=== PATIENT | female | born 1990 | race Caucasian/White ===

== ENCOUNTER 2017-02-07 19:53 | Emergency (ER) | payer OTHER ==
[2017-02-07 19:57] VITALS: BP 100/65; PULSE 73; TEMP 98.8; BMI 34.4
--- NOTE | 2017-02-07 20:11 | PDOC ---
History of Present Illness - History of Present Illness Initial Comments: 02/07/17 20:25 The patient is a 26 year old female, , with a significant past medical history of PCOS, who presents to the emergency department with a couple of weeks of intermittent nausea, fatigue, and lower abdominal pain. The patient states she took an at-home test at the onset of her symptoms 2 weeks ago which was negative, but denies taking another one since. She states that her current pain is just like what I experienced with my last . She reports having the Mirena in place since 2014, and is concerned she may be now. She states she does not have an Brand Lead at this time. She denies chest pain, shortness of breath, headache and dizziness. She denies fever, chills, nausea, vomit, diarrhea and constipation. She denies dysuria, frequency, urgency and hematuria. PAST MEDICAL HISTORY: no significant history PAST SURGICAL HISTORY: no significant history FAMILY HISTORY: no pertinent history SOCIAL HISTORY: Pt lives with family and is employed. MEDICATIONS: reviewed ALLERGIES: As per nursing notes ROS General: (+) fatigue. No fevers or chills, no weakness, no weight loss HEENT: No change in vision. No sore throat,. No ear pain CardioVascular: No chest pain or shortness of breath Respiratory:No cough, or wheezing. Gastrointestinal: (+) lower abdominal pain. Nausea. No vomiting, diarrhea or constipation, No rectal bleeding Genitourinary: No dysuria, hematuria, or frequency Musculoskeletal: No joint or muscle pain or swelling Neurologic: No headache, vertigo, dizziness or loss of consciousness Psychiatric: nor depression Skin: No rashes or easy bruising Endocrine: no increased thirst or abnormal weight change Allergic: no skin or latex allergy All other systems reviewed and normal Physical Exam GENERAL: The patient is awake, alert, and fully oriented, in no acute distress. HEAD: Normal with no signs of trauma. EYES: Pupils equal, round and reactive to light, extraocular movements intact, sclera anicteric, conjunctiva clear. ABDOMEN: nontender. Soft, nondistended, normal bowel sounds EXTREMITIES: Normal range of motion, no edema. NEUROLOGICAL: Normal speech, normal gait. PSYCH: Normal mood, normal affect. SKIN: Warm, Dry, normal turgor, no rashes or lesions noted. <Rose Diaz - Last Filed: 02/07/17 20:33> - General History Source: Patient Exam Limitations: No Limitations - History of Present Illness Initial Comments: 02/07/17 20:40 A portion of this note was documented by scribe services under my direction. I have reviewed the details of the note, within reason, and agree with the documentation. The case summary and management plan written by me. Assessment and plan: This is a 26-year-old female who comes in complaining of intermittent lower abdominal pain with some nausea and fatigue. Patient is concerned that she may be and has a Mirena IUD. Patient had a test done here in the emergency room which was negative Patient was not experiencing any pain or nausea at the time of my evaluation. She had a normal exam. There was no tenderness of her lower abdomen. Patient was reassured that she was not at this time. Patient was encouraged to follow-up with an OB or her primary care DrBreonna if symptoms persisted. Patient discharged home. <Ninoska Ralph I - Last Filed: 02/07/17 20:42> - General Chief Complaint: Pain Stated Complaint: ABD CRAMPING/NAUSEA Time Seen by Provider: 02/07/17 20:02 Past History <Rose Diaz - Last Filed: 02/07/17 20:33> - Past Medical History Asthma: No Cancer: No Cardiac Disorders: No COPD: No Diabetes: No Disorders: Yes (POLYCYSTIC OVARIAN SYNDROME) HTN: No Seizures: No Thyroid Disease: No - Suicide/Smoking/Psychosocial Hx Smoking History: Never smoked Have you smoked in the past 12 months: No Hx Alcohol Use: No Drug/Substance Use Hx: No Substance Use Type: None Hx Substance Use Treatment: No <Ninoska Ralph I - Last Filed: 02/07/17 20:42> - Past Medical History Allergies/Adverse Reactions: Allergies Allergy/AdvReac Type Severity Reaction Status Date / Time No Known Allergies Allergy Verified 03/04/14 12:32 Home Medications: Ambulatory Orders NK [No Known Home Medication] 02/07/17 *Physical Exam - Vital Signs Last Vital Signs Temp Pulse Resp BP Pulse Ox 98.8 F 73 16 100/65 8 L 02/07/17 19:55 02/07/17 19:55 02/07/17 19:55 02/07/17 19:55 02/07/17 19:55 <Rose Diaz - Last Filed: 02/07/17 20:33> - Vital Signs Last Vital Signs Temp Pulse Resp BP Pulse Ox 98.8 F 73 16 100/65 8 L 02/07/17 19:55 02/07/17 19:55 02/07/17 19:55 02/07/17 19:55 02/07/17 19:55 <Ninoska Ralph I - Last Filed: 02/07/17 20:42> ED Treatment Course - ADDITIONAL ORDERS Additional order review: Laboratory Results 02/07/17 20:00 Urine Color Yellow Urine Appearance Hazy Urine pH 7.0 D Ur Specific [place] 1.020 Urine Protein Negative Urine Glucose (UA) Negative Urine Ketones Trace Urine Blood Negative Urine Nitrite Negative Urine Bilirubin Negative Urine Urobilinogen 1.0 Ur Leukocyte Esterase Trace H Urine HCG, Qual Negative <Rose Diaz - Last Filed: 02/07/17 20:33> *DC/Admit/Observation/Transfer - Attestations Scribe Attestion: 02/07/17 20:25 Documentation prepared by Rose Diaz, acting as medical housekeeper for Ninoska Ralph MD <Rose Diaz - Last Filed: 02/07/17 20:33> - Discharge Dispostion Admit: No <Ninoska Ralph I - Last Filed: 02/07/17 20:42> Diagnosis at time of Disposition: Intermittent abdominal pain - Discharge Dispostion Disposition: HOME Condition at time of disposition: Stable - Patient Instructions Additional Instructions: Your test is negative. If your symptoms persist she should follow-up with either an OB doctor or your primary care doctor. Return to the emergency department immediately with ANY new, persistent or worsening symptoms. Continue any medications as previously prescribed by your physician. You should follow up with your primary doctor as soon as possible regarding today's emergency department visit. . Please make sure your doctor reviews the results of your emergency evaluation. Thank you for coming to the Emergency Department today for your care. It was a pleasure to see you today. Please note that your evaluation is INCOMPLETE until you follow-up with your doctor.
[2017-02-07 20:14] LABS: URINE BILIRUBIN Negative (NEGATIVE); URINE BLOOD Negative (NEGATIVE); URINE GLUCOSE (UA) Negative (NEGATIVE); URINE KETONE Trace (NEGATIVE); URINE NITRITE Negative (NEGATIVE); URINE PROTEIN Negative (NEGATIVE)
[2017-02-07 20:16] LABS: URINE APPEARANCE HAZY; URINE COLOR YELLOW; URINE LEUK ESTERASE TRACE (NEGATIVE)
[2017-02-07 22:07] LABS: URINE RBC 0-1 /hpf (0-3)
== END 2017-02-07 20:27 | disposition home or self-care (01) ==
LOC: FER 19:53
DX: R10.9 Unspecified abdominal pain (principal); B59 Pneumocystosis
CPT/HCPCS: 81003; 81015; 84703; 99282-25

== ENCOUNTER 2020-10-27 19:00 | Emergency (ER) | payer OTHER ==
[2020-10-27 19:20] VITALS: BP 103/65; PULSE 65; TEMP 98.4; BMI 35.6
[2020-10-27 19:53] LABS: EPITHELIAL CELLS FEW /hpf
== END 2020-10-27 20:15 | disposition home or self-care (01) ==
LOC: FER 19:00
DX: Z32.01 Encounter for pregnancy test, result positive (principal)
CPT/HCPCS: 81003; 81015; 84703; 87086; 99283-25

== ENCOUNTER 2020-12-12 22:06 | Emergency (ER) | payer OTHER ==
[2020-12-12 22:29] VITALS: BP 112/58; PULSE 92; TEMP 98.8; BMI 35.6
== END 2020-12-13 00:17 | disposition home or self-care (01) ==
LOC: FER 22:06
DX: O20.0 Threatened abortion (principal)
CPT/HCPCS: 76801-TC; 81025; 99284-25

== ENCOUNTER 2021-07-08 03:00 | Inpatient (IN) | payer OTHER ==
[2021-07-08] MEDS ORDERED: ELECTROLYTE-148 SOLN 1,000 ML IV SCH (04:15)
[2021-07-08] MEDS ORDERED: OXYTOCIN 30 UNITS in 0.9% NS 30 UNIT/500 ML INFUS.BAG IVPB SCH (04:15)
[2021-07-08 04:30] LABS: BASO % 0.3 % (0-2.0); EOS % 0.5 % (0-4.5); HEMATOCRIT 38.9 % (32.4-45.2); LYMPH % 18.6 % (8-40); MCH 28.8 pg (25.7-33.7); MCHC 33.3 g/dl (32.0-36.0); MEAN CELL VOLUME 86.5 fl (80-96); MONO % 9.5 % (3.8-10.2); NEUT % 71.1 % (42.8-82.8); PLATELET COUNT 145 10^3/uL (134-434); RBC 4.49 M/mm3 (3.60-5.2); RDW 16.1 % (11.6-15.6); WHITE BLOOD COUNT 11.4 K/mm3 (4.0-10.0)
[2021-07-08 04:39] LABS: INR 1.01 (0.83-1.09); PROTHROMBIN TIME (PATIENT) 11.6 SEC (9.7-13.0)
[2021-07-08 04:42] LABS: ACTIVATED PTT 28.5 SECONDS (25.2-36.5)
[2021-07-08] MEDS ORDERED: FENTANYL/BUPIVACAINE/NS/PF - PCEA - 50 ML DISP.SYRIN EP ONE (04:43)
[2021-07-08 04:52] LABS: BLOOD UREA NITROGEN 9.6 mg/dL (7-18)
[2021-07-08 04:55] LABS: CREATININE 0.8 mg/dL (0.55-1.3)
[2021-07-08] MEDS ORDERED: NALOXONE HCL 0.4 MG/ML VIAL IVPUSH PRN (04:55)
[2021-07-08] MEDS ORDERED: BUPIVACAINE HCL/PF 0.25% (2.5MG/ML) 10 ML VIAL ONE (04:56)
[2021-07-08] MEDS ORDERED: FENTANYL/BUPIVACAINE/NS/PF - PCEA - 50 ML DISP.SYRIN EP SCH (05:00)
[2021-07-08 05:47] LABS: HIV INTERPRETATION NEGATIVE (NEGATIVE)
[2021-07-08 05:51] VITALS: BMI 39.4
[2021-07-08] MEDS ORDERED: OXYTOCIN 20 UNITS in 0.9% NS 20 UNIT/1,000 ML INFUS.BAG IV ONE (07:42)
[2021-07-08] MEDS ORDERED: BENZOCAINE 20% 57 GM BOTTLE TP PRN (08:05)
[2021-07-08] MEDS ORDERED: WITCH HAZEL 50% (TUCKS) 40 PAD/JAR PAD TP PRN (08:05)
[2021-07-08] MEDS ORDERED: BENZOCAINE 28 GM HEMORRHOIDAL OINTMENT TP PRN (08:05)
[2021-07-08] MEDS ORDERED: BISACODYL 10 MG SUPP.RECT RC PRN (08:05)
[2021-07-08] MEDS ORDERED: ACETAMINOPHEN 325 MG TABLET (FP) PO PRN (08:05)
[2021-07-08] MEDS ORDERED: METHYLERGONOVINE MALEATE 0.2 MG/1 ML AMP IM PRN (08:05)
[2021-07-08] MEDS ORDERED: oxyCODONE HCL 5 MG TABLET PO PRN (08:05)
[2021-07-08] MEDS ORDERED: OXYTOCIN 20 UNITS in 0.9% NS 20 UNIT/1,000 ML INFUS.BAG IV SCH (08:15)
[2021-07-08] MEDS ORDERED: PRENATAL VITAMINS W/ FOLIC ACID TABLET (FP) PO ONE (11:26)
[2021-07-08] MEDS: PRENATAL VITAMINS W/ FOLIC ACID TABLET (FP) PO SCH (11:30)
[2021-07-08] MEDS: IBUPROFEN 600 MG TABLET (FP) PO PRN (15:15)
[2021-07-09 08:15] LABS: BASO % 0.2 % (0-2.0); EOS % 0.7 % (0-4.5); HEMATOCRIT 35.6 % (32.4-45.2); LYMPH % 19.6 % (8-40); MCH 29.5 pg (25.7-33.7); MCHC 33.6 g/dl (32.0-36.0); MEAN CELL VOLUME 87.8 fl (80-96); MEAN PLT VOLUME 10.5 fl (7.5-11.1); MONO % 8.2 % (3.8-10.2); NEUT % 71.3 % (42.8-82.8); PLATELET COUNT 109 10^3/uL (134-434); RBC 4.06 M/mm3 (3.60-5.2); RDW 16.5 % (11.6-15.6); WHITE BLOOD COUNT 10.8 K/mm3 (4.0-10.0)
[2021-07-09] MEDS ORDERED: DIPHTH,PERTUSS(ACELL),TET 0.5 ML DISP.SYRIN IM ONE (10:00)
[2021-07-09] MEDS: PRENATAL VITAMINS W/ FOLIC ACID TABLET (FP) PO SCH (10:21)
[2021-07-09] MEDS: IBUPROFEN 600 MG TABLET (FP) PO PRN ×2 (10:24→22:21)
[2021-07-09 21:40] VITALS: BP 124/76; PULSE 66; TEMP 98.1
[2021-07-09] MEDS ORDERED: SENNOSIDES/DOCUSATE COMBO (SENNA PLUS) TABLET (UD) PO PRN (22:00)
[2021-07-10] MEDS: IBUPROFEN 600 MG TABLET (FP) PO PRN (09:47)
[2021-07-10] MEDS: PRENATAL VITAMINS W/ FOLIC ACID TABLET (FP) PO SCH (09:48)
== END 2021-07-10 11:50 | disposition home or self-care (01) | DRG 807 ==
LOC: JLDR 03:00 → J3W 13:32
PROVIDERS: ADMIT Obstetrics & Gynecology; ATTEND Obstetrics & Gynecology
PROC: 10E0XZZ Delivery of Products of Conception, External Approach (ICD-10-PCS; principal; 2021-07-08)
DX: O69.81X0 Labor and delivery complicated by cord around neck, without compression, not applicable or unspecified (principal); Z37.0 Single live birth; Z3A.39 39 weeks gestation of pregnancy
CPT/HCPCS: 36415; 59409; 80048; 85025; 85610; 85730; 86780; 86850; 86900; 86901; 87389; 90715; C9803-CS; U0003; U0005

== ENCOUNTER 2022-02-20 22:04 | Emergency (ER) | payer OTHER ==
[2022-02-20 22:10] VITALS: BP 118/67; PULSE 101; RESP 18; TEMP 99.8; BMI 32.9
[2022-02-20] MEDS ORDERED: ALBUTEROL SO4 2.5/IPRATROPIUM 0.5 INH SOL 3 ML VIAL.NEB. NEB ONE (22:14)
[2022-02-20] MEDS ORDERED: predniSONE 20 MG TABLET (UD) ONE (22:14)
[2022-02-20] MEDS ORDERED: ALBUTEROL SO4 2.5/IPRATROPIUM 0.5 INH SOL 3 ML VIAL.NEB. NEB STA (22:15)
[2022-02-20] MEDS ORDERED: predniSONE 20 MG TABLET (UD) PO ONE (22:15)
== END 2022-02-20 22:33 | disposition home or self-care (01) ==
LOC: FER 22:04
PROC: 3E0F7GC Introduction of Other Therapeutic Substance into Respiratory Tract, Via Natural or Artificial Opening (ICD-10-PCS; principal; 2022-02-20)
DX: J06.9 Acute upper respiratory infection, unspecified (principal)
CPT/HCPCS: 99283-25

== ENCOUNTER 2022-11-02 14:29 | Emergency (ER) | payer OTHER ==
[2022-11-02 14:45] VITALS: BP 111/65; PULSE 85; RESP 20; TEMP 98.2; BMI 36.2
[2022-11-02 16:31] LABS: HEMATOCRIT 36.5 % (32.4-45.2); HEMOGLOBIN 12.7 G/dL (10.7-15.3); MCH 30.9 pg (25.7-33.7); MCHC 34.8 g/dl (32.0-36.0); MEAN CELL VOLUME 88.7 fl (80-96); MEAN PLT VOLUME 8.7 fl (7.5-11.1); PLATELET COUNT 208.1 10^3/uL (134-434); RBC 4.12 10^6/uL (3.60-5.2); RDW 13.4 % (11.6-15.6); WHITE BLOOD COUNT 14.1 10^3/uL (4.0-10.8)
[2022-11-02 16:47] LABS: HCG,QUALITATIVE URINE Positive
[2022-11-02 16:52] LABS: ALBUMIN 3.8 g/dl (3.4-5.0); BLOOD UREA NITROGEN 7.3 mg/dl (7-18); CREATININE 0.5 mg/dl (0.6-1.3); POTASSIUM 3.7 mmol/L (3.5-5.1); SGOT/AST 13.7 U/L (15-37); SGPT/ALT 14.5 U/L (7-52); TOT PROT 6.4 g/dl (6.4-8.2)
[2022-11-02 17:22] LABS: BILIRUBIN,TOTAL 0.3 mg/dL (0.2-1)
[2022-11-02 17:35] LABS: PLATELET ESTIMATE ADEQUATE
== END 2022-11-02 19:15 | disposition home or self-care (01) ==
LOC: FER 14:29
DX: O26.891 Other specified pregnancy related conditions, first trimester (principal); R10.84 Generalized abdominal pain; O99.611 Diseases of the digestive system complicating pregnancy, first trimester; K59.09 Other constipation; Z3A.09 9 weeks gestation of pregnancy
CPT/HCPCS: 36415; 76801-TC; 80053; 81003; 83690; 84702; 84703; 85027; 99284-25

== ENCOUNTER 2023-06-04 07:06 | Inpatient (IN) | payer BC, OTHER ==
[2023-06-04] MEDS: DEXTROSE 5%-LACTATED RINGERS 1,000 ML IV SCH (07:15)
[2023-06-04] MEDS ORDERED: OXYTOCIN 20 UNITS in 0.9% NS 20 UNIT/1,000 ML INFUS.BAG IV ONE ×2 (08:38→10:57)
[2023-06-04] MEDS: OXYTOCIN 20 UNITS in 0.9% NS 20 UNIT/1,000 ML INFUS.BAG IV SCH (08:40)
[2023-06-04] MEDS ORDERED: oxyCODONE HCL 5 MG TABLET PO PRN (08:42)
[2023-06-04] MEDS ORDERED: BISACODYL 10 MG SUPP.RECT RC PRN (08:42)
[2023-06-04] MEDS ORDERED: WITCH HAZEL 50% (TUCKS) 40 PAD/JAR PAD TP PRN (08:42)
[2023-06-04] MEDS ORDERED: METHYLERGONOVINE MALEATE 0.2 MG/1 ML AMP IM PRN (08:42)
[2023-06-04 08:43] LABS: BASO % 0.3 % (0-2.0); EOS % 0.3 % (0-4.5); HEMATOCRIT 38.4 % (32.4-45.2); HEMOGLOBIN 12.4 GM/dL (10.7-15.3); LYMPH % 15.9 % (8-40); MCH 28.5 pg (25.7-33.7); MCHC 32.3 g/dl (32.0-36.0); MEAN CELL VOLUME 88.2 fl (80-96); MEAN PLT VOLUME 10.3 fl (7.5-11.1); MONO % 6.4 % (3.8-10.2); NEUT % 77.1 % (42.8-82.8); PLATELET COUNT 145 10^3/uL (134-434); RBC 4.35 M/mm3 (3.60-5.2); RDW 15.6 % (11.6-15.6); WHITE BLOOD COUNT 12.6 K/mm3 (4.0-10.0)
[2023-06-04 08:48] LABS: INR 1.01 (0.83-1.09); PROTHROMBIN TIME (PATIENT) 11.7 SEC (9.7-13.0)
[2023-06-04] MEDS: BENZOCAINE 28 GM HEMORRHOIDAL OINTMENT TP PRN (08:50)
[2023-06-04] MEDS: BENZOCAINE 20% 57 GM BOTTLE TP PRN (08:50)
[2023-06-04 08:51] LABS: ACTIVATED PTT 25.7 SECONDS (25.2-36.5)
[2023-06-04] MEDS: ACETAMINOPHEN 1000 MG/100 ML BAG IVPB PRN (08:55)
[2023-06-04 09:02] LABS: POTASSIUM 3.9 mmol/L (3.5-5.1)
[2023-06-04 09:03] LABS: CALCIUM 8.5 mg/dL (8.5-10.1)
[2023-06-04 09:04] LABS: BLOOD UREA NITROGEN 5.9 mg/dL (7-18)
[2023-06-04 09:07] LABS: CREATININE 0.6 mg/dL (0.55-1.3)
[2023-06-04 09:26] VITALS: BMI 36.9
[2023-06-04] MEDS: PRENATAL VITAMINS W/ FOLIC ACID TABLET (FP) PO SCH (11:04)
[2023-06-04] MEDS: FERROUS SO4 325 MG TABLET (FP) PO SCH (11:04)
[2023-06-04 12:02] LABS: HIV INTERPRETATION NEGATIVE (NEGATIVE)
[2023-06-04] MEDS: IBUPROFEN 600 MG TABLET (FP) PO PRN (13:22)
[2023-06-04] MEDS: ACETAMINOPHEN 325 MG TABLET (FP) PO PRN (15:38)
[2023-06-05 06:49] LABS: BASO % 0.4 % (0-2.0); EOS % 0.8 % (0-4.5); HEMATOCRIT 34.8 % (32.4-45.2); HEMOGLOBIN 11.2 GM/dL (10.7-15.3); LYMPH % 19.2 % (8-40); MCH 28.1 pg (25.7-33.7); MCHC 32.1 g/dl (32.0-36.0); MEAN CELL VOLUME 87.7 fl (80-96); MEAN PLT VOLUME 10.3 fl (7.5-11.1); MONO % 6.7 % (3.8-10.2); NEUT % 72.9 % (42.8-82.8); PLATELET COUNT 128 10^3/uL (134-434); RBC 3.97 M/mm3 (3.60-5.2); RDW 15.3 % (11.6-15.6); WHITE BLOOD COUNT 13.3 K/mm3 (4.0-10.0)
[2023-06-05 09:58] VITALS: PULSE 71
[2023-06-05] MEDS: DIPHTH,PERTUSS(ACELL),TET 0.5 ML DISP.SYRIN IM ONE (10:00)
[2023-06-05] MEDS ORDERED: SENNOSIDES/DOCUSATE COMBO (SENNA PLUS) TABLET (UD) PO PRN (22:00)
[2023-06-05 22:11] VITALS: RESP 17; TEMP 98.1
[2023-06-06 10:25] VITALS: BP 108/51
== END 2023-06-06 14:30 | disposition home or self-care (01) | DRG 807 ==
LOC: JLDR 07:06 → J3W 11:00
PROVIDERS: ADMIT Obstetrics & Gynecology; ATTEND Obstetrics & Gynecology
PROC: 10E0XZZ Delivery of Products of Conception, External Approach (ICD-10-PCS; principal; 2023-06-04)
DX: O48.0 Post-term pregnancy (principal); Z37.0 Single live birth; Z3A.40 40 weeks gestation of pregnancy
CPT/HCPCS: 36415; 80048; 85025; 85610; 85730; 86780; 86850; 86900; 86901; 87389; 90715; J0131